=== PATIENT | female | born 1990 ===

== ENCOUNTER 2017-06-23 12:59 | Emergency (ER) | payer MEDICAID ==
[2017-06-23 13:16] VITALS: RESP 20
--- NOTE | 2017-06-23 15:03 | C.PDOC ---
History Of Present Illness 26 y/o female presents to the ED complaining of a sore throat associated with chills for 2 days. Denies any associated cough, nausea, or vomiting. Patient notes pain worsens with swallowing. Time Seen by Provider: 06/23/17 13:30 Chief Complaint (Nursing): ENT Problem History Per: Patient History/Exam Limitations: None Onset/Duration Of Symptoms: Days Current Symptoms Are (Timing): Still Present Past Medical History Reviewed: Historical Data, Nursing Documentation, Vital Signs Vital Signs: Last Vital Signs Temp 98.7 F 06/23/17 15:05 Pulse 88 06/23/17 15:05 Resp 20 06/23/17 15:05 BP 115/81 06/23/17 15:05 Pulse Ox 100 06/23/17 15:05 Surgical History: No Surg Hx Family History: States: No Known Family Hx - Social History Hx Tobacco Use: No Hx Alcohol Use: No Hx Substance Use: No - Immunization History Hx Tetanus Toxoid Vaccination: No Hx Influenza Vaccination: Yes Hx Pneumococcal Vaccination: No Review Of Systems Except As Marked, All Systems Reviewed And Found Negative. Constitutional: Positive for: Chills ENT: Positive for: Throat Pain Physical Exam - Physical Exam Appears: Non-toxic, No Acute Distress Skin: Normal Color, Warm, Dry Head: Atraumatic, Normacephalic Eye(s): bilateral: Normal Inspection, PERRL, EOMI Oral Mucosa: Moist Throat: Erythema (tonsillar erythema), Exudate, Other (Hypertrophy of tonsils) Neck: Normal ROM, Supple Lymphatic: Adenopathy (B/L cervical lymphadenopathy) Cardiovascular: Rhythm Regular, No Murmur Respiratory: Normal Breath Sounds, No Rales, No Rhonchi, No Wheezing Extremity: Bilateral: Atraumatic, Normal Color And Temperature Neurological/Psych: Oriented x3, Normal Speech ED Course And Treatment O2 Sat by Pulse Oximetry: 99 Medical Decision Making Medical Decision Making: Impression: Pharyngitis Initial Plan: --Motrin 600 mg PO --Amoxicillin 500 mg PO repeat vitals are normal. Will discharge home to follow up with pmd in 2 days. Disposition Counseled Patient/Family Regarding: Diagnosis, Need For Followup, Rx Given - Disposition Disposition: HOME/ ROUTINE Disposition Time: 15:18 Condition: STABLE Additional Instructions: follow up with your doctor in 2 days call to make an appointment take medications as prescribed return to ER if symptoms worsens or progress Prescriptions: Amoxicillin 875 mg PO BID 10 Days #10 tablet Naproxen [Naprosyn] 500 mg PO BID PRN #16 tab PRN Reason: Pain, Moderate (4-7) Instructions: Sore Throat, Adult (DC) Forms: [facility] (Mauritanian), General Discharge Instructions, Work Excuse - Clinical Impression Clinical Impression: Pharyngitis - Scribe Statement The provider has reviewed the documentation as recorded by the Scribe (Becka Villalba) Provider Attestation: All medical record entries made by the Jocelineibe were at my direction and personally dictated by me. I have reviewed the chart and agree that the record accurately reflects my personal performance of the history, physical exam, medical decision making, and the department course for this patient. I have also personally directed, reviewed, and agree with the discharge instructions and disposition.
[2017-06-23 15:05] VITALS: BP 115/81; PULSE 88; TEMP 98.7
[2017-06-23 15:20] VITALS: O2SAT 99
== END 2017-06-23 15:26 | disposition home or self-care (01) ==
LOC: C.ER 12:59
DX: J02.9 Acute pharyngitis, unspecified (principal)